=== PATIENT | male | born 1960 | race Caucasian/White ===

== ENCOUNTER 2020-08-02 17:07 | Emergency (ER) | payer OTHER ==
[~2020-08-02] VITALS: Ht 185.4 cm; Wt 129.6 kg
[2020-08-02 18:18] LABS: ALBUMIN 3.6 g/dL (3.4-5.0); ANION GAP 6 mmol/L (5-15); CALCIUM 9.1 mg/dL (8.5-10.1); CHLORIDE 106 mmol/L (98-107)
[2020-08-02] MEDS ORDERED: ASPIRIN 81 MG TABLET CHEW ONE (18:22)
[2020-08-02 18:23] LABS: ALANINE AMINOTRANSFERASE 18 U/L (12-78); ALKALINE PHOSPHATASE 131 U/L (45-117); BILIRUBIN,TOTAL 0.3 mg/dL (0.2-1.0); CREATININE 1.15 mg/dL (0.7-1.3); TOTAL PROTEIN 7.9 g/dL (6.4-8.2); TROPONIN I < 0.015 ng/mL (0.000-0.045)
--- NOTE | 2020-08-02 18:23 | NUR ---
PATIENT WALKED BACK FROM TRIAGE WITH CHIEF C/O INTERMITTENT CONFUSION AND SOB X6 DAYS. PATIENT DENIES CHEST PAIN, STATES HE RUNS [employer] FOR WORK AND NEEDS CLEARANCE TO GO BACK TO WORK. NADN, BP 193/124, 162 MG ASA GIVEN, 2 20 GAUGE IVS STARTED, CALL LIGHT WITHN REACH.
[2020-08-02] MEDS ORDERED: ASPIRIN 81 MG TABLET CHEW PO ONE (18:30)
[2020-08-02 18:37] LABS: BASOPHILS % (AUTO) 1 % (0-1); EOSINOPHILS % (AUTO) 2 % (1-7); LYMPHOCYTES % (AUTO) 24 % (22-44); MEAN CORPUSCULAR HEMOGLOBIN 29.9 pg (27.5-34.5); MEAN CORPUSCULAR HGB CONC 33.7 g/dL (33.2-36.2); MEAN PLATELET VOLUME 9.8 fL (7.4-10.4); MONOCYTES % (AUTO) 9 % (2-9); NEUTROPHILS % (AUTO) 65 % (42-75); PLATELET COUNT 206 x10^3/uL (130-400); RED BLOOD COUNT 6.01 x10^6/uL (4.38-5.82); RED CELL DISTRIBUTION WIDTH 12.9 % (9.4-14.8)
[2020-08-02 18:45] LABS: MD NO
--- NOTE | 2020-08-02 18:59 | NUR ---
First contact with patient, ally htn. Has been non compliant with meds. Denies cp but feels intermittent sob. o2 sats remain stable. a/ox4. Sinus no ectopy. Hx CABG has not had any recent cardiac caths for patency of grafts. AIDET provided will continue to monitor.
[2020-08-02 20:25] VITALS: BP 175/100
--- NOTE | 2020-08-02 20:26 | NUR ---
dc home with instruct, pt verbalizes understanding of all instruct and f/u. no further interventions or meds per current d/c b/p per provider. iv dc cath intact.
== END 2020-08-02 20:58 | disposition home or self-care (01) ==
LOC: ED 20:50
DX: F51.04 Psychophysiologic insomnia (principal); F51.01 Primary insomnia; I10 Essential (primary) hypertension; R06.02 Shortness of breath; R07.89 Other chest pain; R94.31 Abnormal electrocardiogram [ECG] [EKG]
CPT/HCPCS: 36415; 71045; 80053; 84484; 85025; 93005; 99285